=== PATIENT | male | born 1970 | race Caucasian/White ===

== ENCOUNTER 2021-05-06 10:46 | Emergency (ER) | payer SELFPAY ==
[~2021-05-06] VITALS: Ht 170.1 cm; Wt 76.2 kg
[~2021-05-06 10:46] MED LIST: AVINZA45 MG PO; BENTYL20 MG PO; DAYPRO600 M1 PO; DICYCLOMINE20 MG PO; FLAGYL500 MG; NORCO 5-325 TA1 EACH PO; PENICILLIN VK500 MG PO; PROCTOCREAM-HC30 GM PO; ROBAXIN750 MG PO; VICODIN 500 MG-1 TAB PO; VICODIN ES 7501 TA1 PO; VOLTAREN50 M1 PO
[2021-05-06 11:01] VITALS: BP 172/80
[2021-05-06 13:02] LABS: BASO % 0.3 % (0.0-1.0); EOS # 0.1 10*3/uL (0.0-0.4); EOS % 1.3 % (1.0-4.0); HEMATOCRIT 42.9 % (42.0-52.0); LYMPH # 2.3 10*3/uL (1.3-4.4); LYMPH % 32.2 % (27.0-41.0); MEAN CORPUSCULAR HGB 28.8 pg (27.0-31.0); MEAN CORPUSCULAR HGB CONC 32.4 g/dl (33.0-37.0); MEAN PLATELET VOLUME 8.7 fl (9.6-12.3); MONO # 0.5 10*3/uL (0.1-1.0); MONO % 6.9 % (3.0-9.0); NEUT # 4.2 10*3/uL (2.3-7.9); PLATELET COUNT AUTOMATED 259 10*3/uL (130-400); RED BLOOD COUNT 4.82 10*6/uL (4.50-5.90); RED CELL DISTRI WIDTH 13.2 % (0-14.5); WHITE BLOOD COUNT 7.1 10*3/uL (4.8-10.8)
[2021-05-06 13:17] LABS: ALBUMIN 3.6 gm/dl (3.1-4.5); ALKALINE PHOSPHATASE 62 U/L (45-117); BUN 15 mg/dl (7-24); CHLORIDE 109 mmol/L (98-107); CREATININE 0.61 mg/dL (0.70-1.30); LIPASE 80 U/L (73-393); POTASSIUM 4.3 mmol/L (3.5-5.1); SGOT/AST 10 IU/L (3-35); SGPT/ALT 19 U/L (12-78); SODIUM 141 mmol/L (136-145); TOTAL PROTEIN 7.3 gm/dL (6.4-8.2)
[2021-05-06] MEDS ORDERED: ZOFRAN4 MG PO (16:28)
== END 2021-05-06 16:32 | disposition home or self-care (01) ==
LOC: ED 10:46
PROVIDERS: Physician Assistant
DX: K52.9 Noninfective gastroenteritis and colitis, unspecified (principal); Z20.822 Contact with and (suspected) exposure to COVID-19

== ENCOUNTER → 2021-10-25 | Outpatient (CLI) | payer BC ==
[~2021-10-25] MED LIST changes: +ZOFRAN4 MG PO
== END | disposition home or self-care (01) ==
LOC: RAD 15:38
PROVIDERS: ATTEND Family Medicine
DX: M47.816 Spondylosis without myelopathy or radiculopathy, lumbar region (principal)

== ENCOUNTER 2022-07-26 10:46 | Emergency (ER) | payer SELFPAY ==
[~2022-07-26] VITALS: Ht 170.1 cm; Wt 77.1 kg
[2022-07-26 10:54] VITALS: BP 153/82
[2022-07-26] MEDS ORDERED: AMOXICILLIN875 MG PO (11:06)
== END 2022-07-26 11:35 | disposition home or self-care (01) ==
LOC: ED 10:46
DX: K08.89 Other specified disorders of teeth and supporting structures (principal); Z98.890 Other specified postprocedural states

== ENCOUNTER → 2023-02-06 | Outpatient (CLI) | payer BC ==
[~2023-02-06] MED LIST changes: +AMOXICILLIN875 MG PO
== END | disposition home or self-care (01) ==
LOC: RAD 10:04
PROVIDERS: ATTEND Family Medicine
DX: M47.812 Spondylosis without myelopathy or radiculopathy, cervical region (principal); M47.816 Spondylosis without myelopathy or radiculopathy, lumbar region; M43.22 Fusion of spine, cervical region; M47.814 Spondylosis without myelopathy or radiculopathy, thoracic region; M48.02 Spinal stenosis, cervical region; I70.0 Atherosclerosis of aorta; M40.294 Other kyphosis, thoracic region

== ENCOUNTER → 2023-12-29 | Outpatient (CLI) | payer BC | END | disposition home or self-care (01) | LOC: MRI 01:02 | PROVIDERS: ATTEND Pain Medicine Interventional Pain Medicine | DX: M51.16 Intervertebral disc disorders with radiculopathy, lumbar region (principal); M47.27 Other spondylosis with radiculopathy, lumbosacral region; M48.061 Spinal stenosis, lumbar region without neurogenic claudication ==